=== PATIENT | female | born 1985 | race Caucasian/White ===

== ENCOUNTER 2017-04-19 17:19 | Emergency (ER) | payer OTHER ==
[2017-04-19 17:30] VITALS: BP 118/81; RESP 16; TEMP 98.5
--- NOTE | 2017-04-19 17:49 | ED PDOC ---
Arrival/HPI - General Chief Complaint: Finger,Hand,&Wrist Time Seen by Provider: 04/19/17 17:20 Historian: Patient - History of Present Illness Narrative History of Present Illness (Text): 04/19/17 17:44 31 y/o female, no pmh, penicillin allergy, last tetanus over 10 years ago, c/o splinter in the left thumb nail x 2 hours. Pt. stated that the wooden door smashed against the lt. thumb which she visualized the splint punctured through the nail border region of the lt. thumb, no numbness or tingling, no bleeding, no other medical or psychological complaints. Past Medical History - Provider Review Nursing Documentation Reviewed: Yes - Psychiatric Hx Psychophysiologic Disorder: No Hx Substance Use: No Family/Social History - Physician Review Nursing Documentation Reviewed: Yes Family/Social History: Unknown Family HX Smoking Status: Never Smoked Hx Alcohol Use: Yes Frequency of alcohol use: Socially Hx Substance Use: No Allergies/Home Meds Allergies/Adverse Reactions: Allergies Penicillins Allergy (Verified 04/19/17 17:26) SWELLING Review of Systems - Review of Systems Constitutional: absent: Fatigue, Fevers Eyes: absent: Vision Changes ENT: absent: Hearing Changes Respiratory: absent: SOB, Cough Cardiovascular: absent: Chest Pain Gastrointestinal: absent: Abdominal Pain, Diarrhea, Nausea, Vomiting Musculoskeletal: absent: Arthralgias, Back Pain, Neck Pain, Joint Swelling, Myalgias Skin: Other (puncture wound). absent: Rash, Pruritis, Skin Lesions, Laceration , Abscess, Ulcer, Cellulitis Neurological: absent: Headache, Dizziness, Focal Weakness Physical Exam Vital Signs Reviewed: Yes Vital Signs Temp Pulse Resp BP Pulse Ox 04/19/17 18:42 16 99 04/19/17 17:54 98.5 F 95 H 16 99 04/19/17 17:26 98.5 F 89 16 118/81 100 Temperature: Afebrile Blood Pressure: Normal Pulse: Regular Respiratory Rate: Normal Appearance: Positive for: Well-Appearing, Non-Toxic, Comfortable Pain Distress: Mild Mental Status: Positive for: Alert and Oriented X 3 - Systems Exam Head: Present: Atraumatic, Normocephalic Pupils: Present: PERRL Extroacular Muscles: Present: EOMI Conjunctiva: Present: Normal Mouth: Present: Moist Mucous Membranes Neck: Present: Normal Range of Motion Respiratory/Chest: Present: Clear to Auscultation, Good Air Exchange. No: Respiratory Distress, Accessory Muscle Use Cardiovascular: Present: Regular Rate and Rhythm, Normal S1, S2. No: Murmurs Abdomen: Present: Normal Bowel Sounds. No: Tenderness, Distention, Peritoneal Signs Back: Present: Normal Inspection Upper Extremity: Present: Normal Inspection, Other (Lt. hand 1st digit thumb region: there is injury to the lateral aspect of the nail region with no visible foreign bodies but the patient insist she sees it, no subungal hematoma , FROM without limitation, sensation intact, motor 5/5, +radial pulse, capillary refill< 2 seconds, neurovascular intact. ). No: Cyanosis, Edema Lower Extremity: Present: Normal Inspection. No: Edema Neurological: Present: GCS=15, CN II-XII Intact, Speech Normal Skin: Present: Warm, Dry, Normal Color. No: Rashes Psychiatric: Present: Alert, Oriented x 3, Normal Insight, Normal Concentration Medical Decision Making ED Course and Treatment: 04/19/17 17:45 -xray 04/19/17 18:06 -xray show no fracture/dislocation/foreign bodies -Tetanus/bactrim ds/motrin -sensation intact, motor 5/5, wound irrigate with 1000cc of normal saline, clean with betadine, 2cc of 1% lidocaine digital block on the lt. hand 1st digit thumb< #11 blade made 0.1cm incision on the puncture site with the wound explored and examined on the patient, there is no visible foreign bodies, bacitracin and gauze dressing, sensation intact, motor 5/5, pt. feels much better. The conclusion: there is no foreign bodies. -Discharge home with bactrim ds, motrin, bacitracin oinment, keep the dressing dry and clean for 24 hours, follow up with your own pmd and hand specialist within 2 days, return to the ER for any new or worsening signs or symptoms. - RAD Interpretation Radiology Orders: 04/19/17 17:49 HAND LEFT THUMB [RAD] Stat no acute findings. Applications Support Specialist: Radiologist - Medication Orders Current Medication Orders: Discontinued Medications Ibuprofen (Motrin Tab) 600 mg PO STAT STA Stop: 04/19/17 18:08 Last Admin: 04/19/17 18:41 Dose: 600 mg Lidocaine HCl (Lidocaine 1% (20ml)) 1 ml IJ STAT STA Stop: 06/10/17 17:51 Lidocaine HCl (Lidocaine 1% (20ml)) Confirm Administered Dose 20 ml .ROUTE .STK- MED ONE Stop: 04/19/17 17:52 Last Admin: 04/19/17 18:12 Dose: Tetanus/Reduced Diphtheria/Acell Pertussis (Boostrix Vaccine Inj) 0.5 ml IM .ONCE ONE Stop: 04/19/17 18:08 Last Admin: 04/19/17 18:39 Dose: 0.5 ml Trimethoprim/Sulfamethoxazole (Bactrim Ds Tab) 1 tab PO STAT STA PRN Reason: Protocol Stop: 04/19/17 18:08 Last Admin: 04/19/17 18:34 Dose: 1 tab - PA / COMMERCIAL FINANCE MANAGER / Resident Statement / has reviewed & agrees with the documentation as recorded. Disposition/Present on Arrival - Present on Arrival Any Indicators Present on Arrival: No History of DVT/PE: No History of Uncontrolled Diabetes: No Urinary Catheter: No History of Decub. Ulcer: No History Surgical Site Infection Following: None - Disposition Have Diagnosis and Disposition been Completed?: Yes Diagnosis: Puncture wound of finger Disposition: HOME/ ROUTINE Disposition Time: 17:53 Patient Plan: Discharge Condition: GOOD Additional Instructions: Discharge home with bactrim ds, motrin, bacitracin oinment, keep the dressing dry and clean for 24 hours, follow up with your own pmd and hand specialist within 2 days, return to the ER for any new or worsening signs or symptoms. Prescriptions: Bacitracin Ointment [Bacitracin] 1 appful TOP BID #15 g Ibuprofen [Motrin Tab] 600 mg PO QID #30 g Sulfamethoxazole/Trimethoprim [Bactrim DS 800 mg-160 mg] 1 tab PO BID #20 tab Referrals: EcoloCapjose Murry, [Primary Care Provider] - Follow up with primary Deni Forde MD [Staff Provider] - Follow up with primary Jesus Shepherd MD [Staff Provider] - Follow up with primary Forms: WORK NOTE
[2017-04-19] MEDS ORDERED: Lidocaine 1% Inj (20ml) IJ STA (17:50)
[2017-04-19] MEDS ORDERED: Lidocaine 1% Inj (20ml) ONE (17:51)
[2017-04-19 17:54] VITALS: PULSE 95; O2SAT 99
[2017-04-19] MEDS ORDERED: TDAP Vaccine 0.5 mL Syr IM ONE (18:07)
[2017-04-19] MEDS ORDERED: Tmp-Smz 800 mg-160 mg DS Tab PO STA (18:07)
--- NOTE | 2017-04-20 10:49 | RAD ---
PROCEDURE: Left Thumb radiographs. HISTORY: lt. thumb injury COMPARISON: None. TECHNIQUE: AP radiograph of the left hand, as well as spot oblique and lateral images of thumb were obtained. FINDINGS: LEFT THUMB: Normal left thumb, without fracture or focal lesion. Remainder of the left hand (as seen on the AP view) grossly unremarkable. JOINTS: Normal. SOFT TISSUES: Normal. No radiopaque/visualized foreign body. OTHER FINDINGS: None. IMPRESSION: No significant or acute findings to account for/ related to the clinical presentation.
== END 2017-04-19 18:42 | disposition home or self-care (01) ==
LOC: ED 17:19
DX: S61.032A Puncture wound without foreign body of left thumb without damage to nail, initial encounter (principal); W45.8XXA Other foreign body or object entering through skin, initial encounter; Z23 Encounter for immunization; Z88.0 Allergy status to penicillin

== ENCOUNTER 2018-03-10 08:41 | Observation (INO) | payer OTHER ==
[2018-03-10] MEDS ORDERED: Sodium Chloride 0.9% 500 ML IV STA (09:26)
--- NOTE | 2018-03-10 09:33 | ED PDOC ---
Arrival/HPI - General Chief Complaint: Dizziness/Lightheaded Time Seen by Provider: 03/10/18 08:44 Historian: Patient - History of Present Illness Narrative History of Present Illness (Text): 03/10/18 09:30 Patient is a 32 yo female denies past medical history, presents to the Emergency Department with history of sudden onset of dizziness this morning, worse with standing or movements. She denies headache. Denies fevers. Denies visual loss or blurred vision. Denies chest pain or palpitations or shortness of breath. States that when she is dizzy she feels nauseous. No abdominal pain. States that she did some cleaning in an apartment yesterday but did not have any dizziness yesterday during cleaning or when she came home. Noted that she had some mild throat irritation. Denies neck pain. Symptom Onset: Sudden Past Medical History - Infectious Disease Hx of Infectious Diseases: None - Psychiatric Hx Psychophysiologic Disorder: No Hx Substance Use: No Family/Social History Family/Social History: Unknown Family HX Smoking Status: Never Smoked Hx Alcohol Use: Yes Hx Substance Use: No Allergies/Home Meds Allergies/Adverse Reactions: Allergies Penicillins Allergy (Verified 04/19/17 17:26) SWELLING Home Medications: Home Meds Medication Instructions Recorded Confirmed No Known Home Med 03/10/18 03/10/18 Review of Systems - Review of Systems Constitutional: absent: Fevers ENT: Sore Throat. absent: Hearing Changes, TMJ Pain, Voice Changes, Rhinorrhea , Epistaxis, Sinus Congestion Respiratory: absent: SOB, Cough Cardiovascular: absent: Chest Pain, Palpitations, Edema, Calf Pain, NAVA Gastrointestinal: Nausea, Vomiting. absent: Abdominal Pain, Diarrhea, Hematochezia, Hematemesis Genitourinary Female: absent: Dysuria, Frequency Musculoskeletal: absent: Back Pain, Neck Pain Skin: absent: Rash Neurological: Dizziness, Disequilibrium. absent: Headache, Focal Weakness, Facial Droop, Seizure Endocrine: absent: Polyuria Hemo/Lymphatic: absent: Easy Bleeding Psychiatric: absent: Depression Physical Exam Vital Signs Reviewed: Yes Vital Signs Temp Pulse Resp BP Pulse Ox 03/10/18 15:58 88 18 111/68 96 03/10/18 14:00 84 18 112/69 98 03/10/18 12:00 80 18 110/71 98 03/10/18 10:00 88 18 112/66 98 03/10/18 08:56 97.2 F L 81 18 104/64 99 03/10/18 08:41 97.2 F L 96 H 18 104/64 96 Temperature: Afebrile Appearance: Positive for: Uncomfortable Pain Distress: Mild Mental Status: Positive for: Alert and Oriented X 3 - Systems Exam Head: Present: Atraumatic, Normocephalic Pupils: Present: PERRL Extroacular Muscles: Present: EOMI Mouth: Present: Moist Mucous Membranes Pharnyx: No: ERYTHEMA Neck: Present: Normal Range of Motion. No: Meningeal Signs Respiratory/Chest: Present: Clear to Auscultation. No: Respiratory Distress Cardiovascular: Present: Regular Rate and Rhythm Abdomen: Present: Normal Bowel Sounds. No: Tenderness, Distention, Peritoneal Signs Back: No: CVA Tenderness Upper Extremity: No: Cyanosis, Edema Lower Extremity: Present: NORMAL PULSES, Neurovascularly Intact. No: Edema, CALF TENDERNESS Neurological: Present: GCS=15, CN II-XII Intact, Normal Sensory Function, Normal Cerebellar Funct, Memory Normal, Normal 2Pt Descrimination, Other Medical Decision Making ED Course and Treatment: 03/10/18 09:43 Patient states that she awoke with symptoms at 610-630. She states that symptoms were more prevelant while she would move or turn. Denies trauma. Denies new medication. Denies headache or neck pain. On initial exam at 0925, patient is alert, no facial droop, no carotid bruits, no pronator drift. Visual acuity and visual simmons intact. Extraocular movements intact with no pathologic nystagmus. She has intact sensation and motor strength in upper and lower extremities. I was called to bedside by family at 0930, patient noted to have acute onset of "feeling tired" and she is noted to be drowsy but will answer questions, denies pain or discomfort. No respiratory distress noted. Head ct ordered and code stroke called due to acute change in exam. This was reviewed and discussed with patient and family. 03/10/2018 09:43 Code Stroke called. 03/10/2018 10:[address] IMPRESSION: No acute intracranial abnormality. If there is a persistent focal neurologic deficit and an ongoing clinical concern for acute infarction, an MRI of the brain without intravenous contrast would be a more sensitive modality for evaluation of hyperaucte/acute ischemic infarction. 1.9 x 0.8 x 1.0 cm CSF density lesion in the left anterior middle cranial fossa is statistically most compatible with an arachnoid cyst. Dictator Nena Duvall MD 03/10/2018 11:38 Chest X-ray IMPRESSION: No active pulmonary disease. Dictator: Nena Duvall MD 03/10/18 17:11 On re-evaluation upon return from ct head, patient remained awake, alert. No headache. CT head reading reviewed with patient. Antivert was given and on reassessment there is complete resolution of dizziness and she is awake, attentive, no nausea, no chest pain, no sob. She denies calf pain or chest discomfort. She is not hypoxia. She is not orthostatic. Patient states that earlier this morning prior to arrival she had episode where she felt weak in right arm "couldn't hold my glass strongly" that was brief. She has currently no motor deficits. Given ? hx of earlier weakness (now resolved) abnormal ct findings, will admit for serial neuro exams. Reviewed case with on-call neurologist Dr. Plaza, who has evaluated patient in the ED.. Hospitalist accepts admission to her service. - Lab Interpretations Lab Results: 03/10/18 09:45 03/10/18 09:45 Lab Results 03/10/18 14:22: Urine HCG, Qual Negative 03/10/18 10:30: Blood Type Confirm O POSITIVE 03/10/18 09:45: Beta HCG, Quant < 2.39 03/10/18 09:45: Blood Type O POSITIVE, Antibody Screen Negative, BBK History Checked No verified bt 03/10/18 09:45: Hemoglobin A1c 4.7 03/10/18 09:45: Sodium 139, Potassium 3.8, Chloride 102, Carbon Dioxide 25, Anion Gap 15, BUN 9, Creatinine 0.6 L, Est GFR ( Amer) > 60, Est GFR (Non -Af Amer) > 60, Random Glucose 93, Calcium 9.3, Total Bilirubin 0.7, AST 28, ALT 37, Alkaline Phosphatase 73, Total Protein 8.1, Albumin 4.8, Globulin 3.3, Albumin/Globulin Ratio 1.4, Triglycerides 55, Cholesterol 158, LDL Cholesterol Direct 67, HDL Cholesterol 76 H 03/10/18 09:45: WBC 7.4, RBC 4.23, Hgb 12.7, Hct 36.8, MCV 87.0, MCH 30.0, MCHC 34.5, RDW 13.1, Plt Count 177, MPV 10.9, Gran % 86.6 H, Lymph % (Auto) 9.7 L, [place] % (Auto) 3.1, Eos % (Auto) 0.3 L, Baso % (Auto) 0.3, Gran # 6.41, Lymph # ( Auto) 0.7 L, [place] # (Auto) 0.2, Eos # (Auto) 0.0, Baso # (Auto) 0.02 03/10/18 09:43: POC Glucose (mg/dL) 84 - RAD Interpretation Radiology Orders: 03/10/18 09:37 HEAD W/O (CODE STROKE) [CT] Stat 03/10/18 09:38 CHEST PORTABLE [RAD] Stat 03/10/18 15:32 BRAIN WITHOUT CONTRAST [MRI] Stat MRA HEAD WITHOUT CONTRAST [MRI] Stat - EKG Interpretation EKG Interpretation (Text): EKG at 0855 normal sinus rhythm with sinus arrhythmia Interpreted by ED Physician: Yes Type: 12 lead EKG - Medication Orders Current Medication Orders: Discontinued Medications Aspirin (Aspirin Chewable) 81 mg PO STAT STA Stop: 03/10/18 13:47 Last Admin: 03/10/18 14:05 Dose: 81 mg Sodium Chloride (Sodium Chloride 0.9%) 500 mls @ 1,000 mls/hr IV .Q30M STA Stop: 03/10/18 09:55 Last Admin: 03/10/18 10:09 Dose: 1,000 mls/hr eMAR Start Stop Document 03/10/18 10:09 RIO (Rec: 03/10/18 10:10 RIO [id number]) Intravenous Solution Start Date 03/10/18 Start Time 10:10 End Date 03/10/18 End time 10:40 Total Infusion Time 30 Meclizine HCl (Antivert) 25 mg PO ONCE ONE Stop: 03/10/18 09:27 Last Admin: 03/10/18 10:09 Dose: 25 mg NIHSS Scale ([place]) Time Performed: 09:30 - How Severe is the Stoke Baseline Level of Consciousness: 1=Drowsy LOC to Questions: 0=Both comments correct LOC to commands: 0=Obeys both correctly Best Gaze: 0=Normal Visual: 0=No visual loss Facial: 0=Normal Motor Arm - Left: 0=No drift Motor Arm - Right: 0=No drift Motor Leg - Left: 0=No drift Motor Leg - Right: 0=No drift Limb Ataxia: 0=Absent Sensory: 0=Normal Best Language: 0=No aphasia Dysarthia: 0=Normal articulation Extinction & Inattention (Neglect): 0=Normal, no object Score: 1 Risk Level: Minor Stroke Risk NIHSS Scale([place]) 2 Time Performed: 11:00 - How Severe is the Stoke Baseline Level of Consciousness: 0=Alert LOC to Questions: 0=Both comments correct LOC to commands: 0=Obeys both correctly Best Gaze: 0=Normal Visual: 0=No visual loss Facial: 0=Normal Motor Arm - Left: 0=No drift Motor Arm - Right: 0=No drift Motor Leg - Left: 0=No drift Motor Leg - Right: 0=No drift Limb Ataxia: 0=Absent Sensory: 0=Normal Best Language: 0=No aphasia Dysarthia: 0=Normal articulation Extinction & Inattention (Neglect): 0=Normal, no object Score: 0 Risk Level: No Stroke Risk rTPA Inclusion/Exclusion - Refusal of Treatment Patient Refused Treatment: Yes - Warning to TPA With Conditions Condition: Stroke Serevity Too Mild, Rapid Improvement Disposition/Present on Arrival - Present on Arrival Any Indicators Present on Arrival: No History of DVT/PE: No History of Uncontrolled Diabetes: No Urinary Catheter: No History of Decub. Ulcer: No History Surgical Site Infection Following: None - Disposition Have Diagnosis and Disposition been Completed?: Yes Diagnosis: Dizziness, Abnormal head CT Disposition: HOSPITALIZED Disposition Time: 14:45 Patient Plan: Admission, Telemetry Patient Problems: Current Active Problems Problem Status Onset Abnormal head CT Acute Dizziness Acute Condition: FAIR
[2018-03-10 10:13] LABS: BASO # 0.02 K/mm3 (0.0-2.0); BASO % 0.3 % (0.0-3.0); EOS % 0.3 % (1.5-5.0); GRAN # 6.41 (1.4-6.5); GRAN % 86.6 % (50.0-68.0); HEMOGLOBIN 12.7 g/dL (12.0-16.0); LYMPH # 0.7 (1.2-3.4); LYMPH % 9.7 % (22.0-35.0); MEAN CORPUSCULAR HGB CONC 34.5 g/dl (31.0-37.0); MEAN PLATELET VOLUME 10.9 fl (7.0-11.0); MONO # 0.2 (0.1-0.6); MONO % 3.1 % (1.0-6.0); RBC 4.23 10^6/uL (3.5-6.1); RED CELL DISTRIBUTION WIDTH 13.1 % (11.5-14.5); WHITE BLOOD COUNT 7.4 10^3/ul (4.5-11.0)
--- NOTE | 2018-03-10 10:13 | CT ---
PROCEDURE: CT HEAD WITHOUT CONTRAST. HISTORY: Dizziness and fatigue COMPARISON: None available. TECHNIQUE: Axial computed tomography images were obtained through the head/brain without intravenous contrast. Radiation dose: Total exam DLP = 814.41 MGy-cm. This CT exam was performed using one or more of the following dose reduction techniques: Automated exposure control, adjustment of the mA and/or kV according to patient size, and/or use of iterative reconstruction technique. FINDINGS: HEMORRHAGE: No intracranial hemorrhage. BRAIN: [place]-white matter differentiation is preserved. There is no mass effect or abnormal extra-axial fluid collection. There is no territorial infarction. There is a 1.9 x 0.8 x 1.0 cm CSF density lesion in the left anterior middle cranial fossa. VENTRICLES: The ventricles are normal in size, shape and configuration. CALVARIUM: The skull base and calvarium are normal. PARANASAL SINUSES: Predominantly clear. MASTOID AIR CELLS: Predominantly clear. OTHER FINDINGS: None. IMPRESSION: No acute intracranial abnormality. If there is a persistent focal neurologic deficit and an ongoing clinical concern for acute infarction, an MRI of the brain without intravenous contrast would be a more sensitive modality for evaluation of hyperacute/acute ischemic infarction. 1.9 x 0.8 x 1.0 cm CSF density lesion in the left anterior middle cranial fossa is statistically most compatible with an arachnoid cyst. Important findings were discussed with Dr. wang in the ER on 03/10/2018 at 10 a.m.
[2018-03-10 10:14] LABS: ALB/GLOB RATIO 1.4 (1.1-1.8); ALBUMIN 4.8 g/dL (3.0-4.8); ALT/SGPT 37 U/L (7-56); AST/SGOT 28 U/L (14-36); BLOOD UREA NITROGEN 9 mg/dL (7-21); CALCIUM 9.3 mg/dL (8.4-10.5); GFR AFRICAN-AMERICAN > 60; GFR NON-AFRICAN AMERICAN > 60; HDL CHOLESTEROL 76 mg/dL (29-60)
[2018-03-10 10:24] LABS: LDL CHOLESTEROL 67 mg/dL (0-129)
--- NOTE | 2018-03-10 11:40 | RAD ---
HISTORY: Code Stroke COMPARISON: No prior. FINDINGS: LUNGS: The lungs are well inflated and clear. PLEURA: No significant pleural effusion identified, no pneumothorax apparent. CARDIOVASCULAR: Normal. OSSEOUS STRUCTURES: No significant abnormalities. VISUALIZED UPPER ABDOMEN: Normal. OTHER FINDINGS: None. IMPRESSION: No active pulmonary disease.
--- NOTE | 2018-03-10 14:20 | CP.PCM.CON ---
History of Present Illness - History of Present Illness History of Present Illness: 32 yr old woman who presents with sudden onset dizziness and vomiting earlier this morning when she woke up. She denies any sick contacts, any recent change in meds. Dizziness is worse when she stands up, relieved by sitting down , accompanied by nausea. She came in as a code stroke but her symptoms resolved so she was not deemed a TPA candidate. Then, in the ER, she had a witnessed spell of fatigue followed by right arm discomfort and shaking. In addition, dr servin was able to elicit a history of right arm weakness sporadically with difficulty picking up cups and objects. No focal seizures, no headache, no visual field cut. PMH/PSH: Hyperthyroidism. 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 Has 2 children, no tobacco, no etoh. All: nkda. on exam: Normal neurological examination. Ct head: small arachnoid cyst in the left middle cranial fossa. no stroke, no hemorrhage. Past Patient History - Infectious Disease Hx of Infectious Diseases: None - Past Social History Smoking Status: Never Smoked - PSYCHIATRIC Hx Psychophysiologic Disorder: No Hx Substance Use: No - SURGICAL HISTORY Hx Surgeries: No - ANESTHESIA Hx Anesthesia: No Meds Allergies/Adverse Reactions: Allergies Allergy/AdvReac Type Severity Reaction Status Date / Time Penicillins Allergy SWELLING Verified 03/10/18 20:54 Results - Vital Signs Recent Vital Signs: Last Vital Signs Temp 97.2 F L 03/10/18 08:56 Pulse 81 03/10/18 08:56 Resp 18 03/10/18 08:56 BP 104/64 03/10/18 08:56 Pulse Ox 99 03/10/18 08:56 - Labs Result Diagrams: 03/10/18 09:45 03/10/18 09:45 Labs: Laboratory Results - last 24 hr 03/10/18 03/10/18 03/10/18 09:43 09:45 09:45 WBC 7.4 RBC 4.23 Hgb 12.7 Hct 36.8 MCV 87.0 MCH 30.0 MCHC 34.5 RDW 13.1 Plt Count 177 MPV 10.9 Gran % 86.6 H Lymph % (Auto) 9.7 L [place] % (Auto) 3.1 Eos % (Auto) 0.3 L Baso % (Auto) 0.3 Gran # 6.41 Lymph # (Auto) 0.7 L [place] # (Auto) 0.2 Eos # (Auto) 0.0 Baso # (Auto) 0.02 Sodium 139 Potassium 3.8 Chloride 102 Carbon Dioxide 25 Anion Gap 15 BUN 9 Creatinine 0.6 L Est GFR ( Amer) > 60 Est GFR (Non-Af Amer) > 60 POC Glucose (mg/dL) 84 Random Glucose 93 Calcium 9.3 Total Bilirubin 0.7 AST 28 ALT 37 Alkaline Phosphatase 73 Total Protein 8.1 Albumin 4.8 Globulin 3.3 Albumin/Globulin Ratio 1.4 Triglycerides 55 Cholesterol 158 LDL Cholesterol Direct 67 HDL Cholesterol 76 H Beta HCG, Quant Blood Type Blood Type Confirm Antibody Screen BBK History Checked 03/10/18 03/10/18 03/10/18 09:45 09:45 10:30 WBC RBC Hgb Hct MCV MCH MCHC RDW Plt Count MPV Gran % Lymph % (Auto) [place] % (Auto) Eos % (Auto) Baso % (Auto) Gran # Lymph # (Auto) [place] # (Auto) Eos # (Auto) Baso # (Auto) Sodium Potassium Chloride Carbon Dioxide Anion Gap BUN Creatinine Est GFR ( Amer) Est GFR (Non-Af Amer) POC Glucose (mg/dL) Random Glucose Calcium Total Bilirubin AST ALT Alkaline Phosphatase Total Protein Albumin Globulin Albumin/Globulin Ratio Triglycerides Cholesterol LDL Cholesterol Direct HDL Cholesterol Beta HCG, Quant < 2.39 Blood Type O POSITIVE Blood Type Confirm O POSITIVE Antibody Screen Negative BBK History Checked No verified bt - Imaging and Cardiology CT scan - head Status: Image reviewed by me, Report reviewed by me (ct head shows left middle cranial fossa with 2 cm by 1 cm arachnoid cyst. ) Assessment & Plan - Assessment and Plan (Free Text) Assessment: 32 yr old woman with new onset numbness and tingling and arachnoid cyst in middle cranial fossa. There is a slight likelihood this may be the etiology for her symptoms. We will order MRI brain with irving and eeg. Thank you Dr. Plaza
--- NOTE | 2018-03-10 16:58 | CP.PCM.HP ---
<Alexi Rhoades - Last Filed: 03/10/18 18:26> History of Present Illness - History of Present Illness History of Present Illness: CC: Dizziness HPI: 32 year old female with past medical history of hyperthyroidism in 2013 who [place] [facility] [place] with 1 day history of dizziness and vomiting. Patient reports starting early this morning she began experiencing dizziness that progressively worsened over short period of time. Patient indicates nausea and vomiting secondary to dizziness. Patient reports dizziness exacerbated by standing and with turning of her head. She stated the dizziness was constant and without remission with laying flat. She denies taking any medication in an effort to diminish symptoms. Associated symptoms with dizziness included poor upper extremity coordination R>L and tremulousness. Patient was evaluated in ED and found to have acute onset fatigue and right arm discomfort/difficulty with coordination. Code stroke was called and patient went for Head CT which showed negative for acute findings and CSF collection identified as an arachnoid cyst measuring 1.9cm x 0.8cm x 1.0 cm. Neurology was consulted for Code Stroke. Neurology evaluated the patient. Patient denies previous episodes similar to presenting symptoms. Denies loss of bowel, urinary incontinence, biting of tongue, post ictal state. Denies aura or migraine type picture. 12 point ROS benign otherwise mentioned in HPI. After interview patient went for MRI of head. PMH: Hyperthyroid - resolved PSH: Denies SOChx: Tobacco: Denies, ETOH: Social, ID: Denies - Lives in [place] with and two children, currently enrolled in graduate classes [facility]: Brother with unspecified brain tumor that was removed with two surgeries ALL: PCN - causes swelling Meds: Denies Present on Admission - Present on Admission Any Indicators Present on Admission: No Review of Systems - Review of Systems All systems: reviewed and no additional remarkable complaints except (as mentioned in HPI) Past Patient History - Infectious Disease Hx of Infectious Diseases: None - Past Social History Smoking Status: Never Smoked Alcohol: Social Drugs: Denies - PSYCHIATRIC Hx Psychophysiologic Disorder: No Hx Substance Use: No - SURGICAL HISTORY Hx Surgeries: No - ANESTHESIA Hx Anesthesia: No Meds Home Medications: Home Medication List Medication Instructions Recorded Confirmed Type Meclizine [Antivert] 12.5 mg PO BID PRN #14 tab 03/11/18 Rx Allergies/Adverse Reactions: Allergies Allergy/AdvReac Type Severity Reaction Status Date / Time Penicillins Allergy SWELLING Verified 03/10/18 20:54 Physical Exam - Constitutional Appears: No Acute Distress - Head Exam Head Exam: ATRAUMATIC, NORMAL INSPECTION, NORMOCEPHALIC - Eye Exam Eye Exam: EOMI, PERRL - ENT Exam ENT Exam: Mucous Membranes Moist - Neck Exam Neck exam: Positive for: Full Rom. Negative for: Lymphadenopathy - Respiratory Exam Respiratory Exam: Clear to Auscultation Bilateral, NORMAL BREATHING PATTERN. absent: Rales, Rhonchi, Wheezes, Stridor - Cardiovascular Exam Cardiovascular Exam: REGULAR RHYTHM, +S1, +S2 - GI/Abdominal Exam GI & Abdominal Exam: Normal Bowel Sounds, Soft. absent: Distended, Firm, Guarding - Extremities Exam Extremities exam: Positive for: normal inspection, pedal pulses present. Negative for: calf tenderness, pedal edema, tenderness - Neurological Exam Neurological exam: Alert, CN II-XII Intact, Oriented x3, Reflexes Normal Additional comments: upper and lower extremities with normal tendon reflexes, able to move all four extremities past midline - Psychiatric Exam Psychiatric exam: Normal Affect, Normal Mood - Skin Skin Exam: Dry, Warm Results - Vital Signs Recent Vital Signs: Last Vital Signs Temp 97.2 F L 03/10/18 08:56 Pulse 88 03/10/18 15:58 Resp 18 03/10/18 15:58 BP 111/68 03/10/18 15:58 Pulse Ox 96 03/10/18 15:58 - Labs Result Diagrams: 03/10/18 09:45 03/10/18 09:45 Labs: Laboratory Results - last 24 hr 03/10/18 03/10/18 03/10/18 09:43 09:45 09:45 WBC 7.4 RBC 4.23 Hgb 12.7 Hct 36.8 MCV 87.0 MCH 30.0 MCHC 34.5 RDW 13.1 Plt Count 177 MPV 10.9 Gran % 86.6 H Lymph % (Auto) 9.7 L [place] % (Auto) 3.1 Eos % (Auto) 0.3 L Baso % (Auto) 0.3 Gran # 6.41 Lymph # (Auto) 0.7 L [place] # (Auto) 0.2 Eos # (Auto) 0.0 Baso # (Auto) 0.02 Sodium 139 Potassium 3.8 Chloride 102 Carbon Dioxide 25 Anion Gap 15 BUN 9 Creatinine 0.6 L Est GFR ( Amer) > 60 Est GFR (Non-Af Amer) > 60 POC Glucose (mg/dL) 84 Random Glucose 93 Hemoglobin A1c Calcium 9.3 Total Bilirubin 0.7 AST 28 ALT 37 Alkaline Phosphatase 73 Total Protein 8.1 Albumin 4.8 Globulin 3.3 Albumin/Globulin Ratio 1.4 Triglycerides 55 Cholesterol 158 LDL Cholesterol Direct 67 HDL Cholesterol 76 H Beta HCG, Quant Urine HCG, Qual Blood Type Blood Type Confirm Antibody Screen BBK History Checked 03/10/18 03/10/18 03/10/18 09:45 09:45 09:45 WBC RBC Hgb Hct MCV MCH MCHC RDW Plt Count MPV Gran % Lymph % (Auto) [place] % (Auto) Eos % (Auto) Baso % (Auto) Gran # Lymph # (Auto) [place] # (Auto) Eos # (Auto) Baso # (Auto) Sodium Potassium Chloride Carbon Dioxide Anion Gap BUN Creatinine Est GFR ( Amer) Est GFR (Non-Af Amer) POC Glucose (mg/dL) Random Glucose Hemoglobin A1c 4.7 Calcium Total Bilirubin AST ALT Alkaline Phosphatase Total Protein Albumin Globulin Albumin/Globulin Ratio Triglycerides Cholesterol LDL Cholesterol Direct HDL Cholesterol Beta HCG, Quant < 2.39 Urine HCG, Qual Blood Type O POSITIVE Blood Type Confirm Antibody Screen Negative BBK History Checked No verified bt 03/10/18 03/10/18 10:30 14:22 WBC RBC Hgb Hct MCV MCH MCHC RDW Plt Count MPV Gran % Lymph % (Auto) [place] % (Auto) Eos % (Auto) Baso % (Auto) Gran # Lymph # (Auto) [place] # (Auto) Eos # (Auto) Baso # (Auto) Sodium Potassium Chloride Carbon Dioxide Anion Gap BUN Creatinine Est GFR ( Amer) Est GFR (Non-Af Amer) POC Glucose (mg/dL) Random Glucose Hemoglobin A1c Calcium Total Bilirubin AST ALT Alkaline Phosphatase Total Protein Albumin Globulin Albumin/Globulin Ratio Triglycerides Cholesterol LDL Cholesterol Direct HDL Cholesterol Beta HCG, Quant Urine HCG, Qual Negative Blood Type Blood Type Confirm O POSITIVE Antibody Screen BBK History Checked Assessment & Plan - Assessment and Plan (Free Text) Assessment: 32 year old female with past medical history that includes hyperthyroidism previously treated and resolved who presented [place] [facility] complaining of dizziness and nausea with vomiting. Code stroke in ED called for new onset right upper extremity weakness and - . Head CT done shows no acute intracranial abnormalities and arachnoid cyst. Neurology consulted. Patient to be admitted for further work up of dizziness etiology. Plan: Dizziness with associated nausea and vomiting Details: - Etiology: Vertigo vs. vs. TIA vs. seizure vs. CVA - Head CT(03/10/18): - Neurology consulted - Electrolytes wnl Plan: - f/u neurology recs - MRI brain f/u - Check TSH - Neuro checks Q6H - Aspiration, Fall, Seizure precaution DVT PPx: SCDs GI ppx: Pepcid Case and plan discussed with attending - Date & Time Date: 03/10/18 Time: 17:02 <Elder Morales - Last Filed: 03/11/18 17:36> Results - Vital Signs Recent Vital Signs: Last Vital Signs Temp 98.1 F 03/11/18 12:00 Pulse 73 03/11/18 12:00 Resp 16 03/11/18 12:00 BP 95/52 L 03/11/18 12:00 Pulse Ox 99 03/11/18 06:00 - Labs Result Diagrams: 03/11/18 06:15 03/11/18 06:15 Labs: Laboratory Results - last 24 hr 03/10/18 03/11/18 03/11/18 21:05 06:15 06:15 WBC 6.6 RBC 3.91 Hgb 11.6 L Hct 34.2 L MCV 87.5 MCH 29.7 MCHC 33.9 RDW 13.4 Plt Count 183 MPV 11.2 H Gran % 63.1 Lymph % (Auto) 27.3 [place] % (Auto) 7.7 H Eos % (Auto) 1.4 L Baso % (Auto) 0.5 Gran # 4.16 Lymph # (Auto) 1.8 [place] # (Auto) 0.5 Eos # (Auto) 0.1 Baso # (Auto) 0.03 Sodium 141 Potassium 3.7 Chloride 109 H Carbon Dioxide 23 Anion Gap 13 BUN 12 Creatinine 0.7 Est GFR ( Amer) > 60 Est GFR (Non-Af Amer) > 60 POC Glucose (mg/dL) Random Glucose 89 Calcium 8.7 Total Bilirubin 0.4 AST 19 ALT 28 Alkaline Phosphatase 59 Total Protein 6.5 Albumin 3.7 Globulin 2.8 Albumin/Globulin Ratio 1.4 Urine Opiates Screen Negative Urine Methadone Screen Negative Ur Barbiturates Screen Negative Ur Phencyclidine Scrn Negative Ur Amphetamines Screen Negative U Benzodiazepines Scrn Negative U Oth Cocaine Metabols Negative U Cannabinoids Screen Negative 03/11/18 03/11/18 03/11/18 07:29 11:15 11:18 WBC RBC Hgb Hct MCV MCH MCHC RDW Plt Count MPV Gran % Lymph % (Auto) [place] % (Auto) Eos % (Auto) Baso % (Auto) Gran # Lymph # (Auto) [place] # (Auto) Eos # (Auto) Baso # (Auto) Sodium Potassium Chloride Carbon Dioxide Anion Gap BUN Creatinine Est GFR ( Amer) Est GFR (Non-Af Amer) POC Glucose (mg/dL) 84 206 H 121 H Random Glucose Calcium Total Bilirubin AST ALT Alkaline Phosphatase Total Protein Albumin Globulin Albumin/Globulin Ratio Urine Opiates Screen Urine Methadone Screen Ur Barbiturates Screen Ur Phencyclidine Scrn Ur Amphetamines Screen U Benzodiazepines Scrn U Oth Cocaine Metabols U Cannabinoids Screen Attending/Attestation - Attestation I have personally seen and examined this patient.: Yes I have fully participated in the care of the patient.: Yes I have reviewed all pertinent clinical information: Yes Notes (Text): 03/11/18 17:33 Attending note; Patient seen and examined with resident in ER. Patient is a 32 year old female with past medical history of hyperthyroidism in 2013 who presents [place] [facility] [place] 1 day history of dizziness and vomiting. Patient reports starting early this morning she began experiencing dizziness that progressively worsened over short period of time. Patient also had some shakiness of the right dominant the ER. Code stroke called. CT head is negative for acute infarct. Showed subarachnoid cyst. CT is negative. Neurology evaluation appreciated. Started on meclizine. MRI ordered . PT evaluation requested . Possible discharge home tomorrow .
[2018-03-10 17:52] LABS: PH,URINE 6.5 (4.7-8.0); URINE BILIRUBIN NEGATIVE (NEGATIVE); URINE BLOOD NEGATIVE (NEGATIVE); URINE GLUCOSE (UA) NEGATIVE (NEGATIVE); URINE LEUKOCYTE ESTERASE NEGATIVE Leu/uL (NEGATIVE); URINE PROTEIN NEGATIVE mg/dL (<30 mg/dL); URINE UROBILINOGEN 0.2 E.U./dL (<1 E.U./dL)
[2018-03-10 17:54] LABS: URINE APPEARANCE CLEAR (CLEAR); URINE COLOR YELLOW (YELLOW)
--- NOTE | 2018-03-10 18:40 | CARD ---
APPROVED REPORT EKG Measurement Heart [id number] <Conclusion> Normal sinus rhythm with sinus arrhythmia Normal ECG
--- NOTE | 2018-03-10 20:18 | MRI ---
EXAM: MR Head Without Intravenous Contrast EXAM DATE/TIME: 03/10/2018 3:32 PM CLINICAL HISTORY: The patient age is 32 years old and is female; Signs and symptoms; Dizziness; Additional info: Dizziness, ? subarachnoid cyst Facility exam id and description: Mri br s brain without contrast TECHNIQUE: Magnetic resonance images of the head/brain without intravenous contrast in multiple planes. COMPARISON: CT - HEAD W/O (CODE STROKE) 2018-03-10 09:57 FINDINGS: Brain: There is no restricted diffusion within the brain to suggest acute ischemic change. There is no significant white matter disease. No cerebral edema. There is a tiny focus of magnetic susceptibility within the inferior left cerebellar lobe, which is likely incidental. There is asymmetric increase in T2 hyperintense CSF fluid signal intensity within the anterior aspect of the left middle cranial fossa measuring approximately 1.8 x 0.6 x 1.1 cm. This is consistent with an arachnoid cyst. Ventricles: No ventriculomegaly. Bones/joints: No acute abnormality. Sinuses: Unremarkable as visualized. No acute sinusitis. Mastoid air cells: No mastoid effusion. Orbits: No acute abnormality, as visualized. IMPRESSION: 1. There is no restricted diffusion within the brain to suggest acute ischemic change. 2. There is asymmetric increase in extra-axial fluid within the anterior aspect of the left middle cranial fossa measuring approximately 1.8 x 0.6 x 1.1 cm. This is consistent with an arachnoid cyst.
--- NOTE | 2018-03-10 20:25 | MRI ---
EXAM: MR Angiography Head Without Intravenous Contrast EXAM DATE/TIME: 03/10/2018 3:32 PM CLINICAL HISTORY: The patient age is 32 years old and is female; Signs and symptoms; Dizziness and giddiness Facility exam id and description: Mri mra heads mra head without contrast TECHNIQUE: Magnetic resonance angiography images of the head without intravenous contrast. COMPARISON: CT - HEAD W/O (CODE STROKE) 2018-03-10 09:57 FINDINGS: Right internal carotid artery: The proximal right cavernous internal carotid artery appears mildly stenosed on the three-dimensional reconstructions, without hemodynamically significant stenosis when correlated with the source images. This can be contribute artifact. No aneurysm. Right anterior cerebral artery: No occlusion or significant stenosis. No aneurysm. Right middle cerebral artery: No occlusion or significant stenosis. No aneurysm. Right posterior cerebral artery: No occlusion or significant stenosis. No aneurysm. Right vertebral artery: No occlusion or significant stenosis. Left internal carotid artery: No acute findings. Intracranial segment is patent with no significant stenosis. No aneurysm. Left anterior cerebral artery: No occlusion or significant stenosis. No aneurysm. Left middle cerebral artery: No occlusion or significant stenosis. No aneurysm. Left posterior cerebral artery: No occlusion or significant stenosis. No aneurysm. Left vertebral artery: No occlusion or significant stenosis. Basilar artery: No occlusion or significant stenosis. No aneurysm. IMPRESSION: 1. No definitive hemodynamically significant stenosis or occlusion on this MRA head. 2. Incidental/non-acute findings are described above.
--- NOTE | 2018-03-10 21:46 | CP.PCM.PN ---
Subjective - Date & Time of Evaluation Date of Evaluation: 03/10/18 Time of Evaluation: 21:10 - Subjective Subjective: Note: Dr Conley called from [facility] .He stated pt 's MRI of the brain shows no acute findings.There is a small arachnoid cyst in the L cranial fossa. Objective - Vital Signs/Intake and Output Vital Signs (last 24 hours): Temp Pulse Resp BP Pulse Ox 98.1 F 78 18 118/71 99 03/10/18 18:10 03/10/18 18:10 03/10/18 18:10 03/10/18 18:10 03/10/18 18:10 - Medications Medications: Current Medications Famotidine (Pepcid) 20 mg PO BID CARLOS Last Admin: 03/10/18 18:36 Dose: 20 mg Ondansetron HCl (Zofran Inj) 4 mg IVP Q4H PRN PRN Reason: Nausea/Vomiting Ondansetron HCl (Zofran Inj) 4 mg IVP Q4H PRN PRN Reason: Nausea/Vomiting
[2018-03-10 22:30] LABS: BARBITURATES, UR NEGATIVE (NEGATIVE); BENZODIAZEPINES, UR NEGATIVE (NEGATIVE); OPIATES, UR NEGATIVE (NEGATIVE); PHENCYCLIDINE, UR NEGATIVE (NEGATIVE)
[2018-03-11] MEDS ORDERED: Pneumococcal 23-Valent Vaccine IM ONE (00:20)
[2018-03-11 06:23] VITALS: O2SAT 99
[2018-03-11 06:39] LABS: BASO # 0.03 K/mm3 (0.0-2.0); BASO % 0.5 % (0.0-3.0); EOS # 0.1 (0.0-0.7); EOS % 1.4 % (1.5-5.0); GRAN # 4.16 (1.4-6.5); GRAN % 63.1 % (50.0-68.0); HEMOGLOBIN 11.6 g/dL (12.0-16.0); LYMPH # 1.8 (1.2-3.4); LYMPH % 27.3 % (22.0-35.0); MEAN CELL VOLUME 87.5 fl (80.0-105.0); MEAN CORPUSCULAR HEMOGLOBIN 29.7 pg (25.0-35.0); MEAN CORPUSCULAR HGB CONC 33.9 g/dl (31.0-37.0); MEAN PLATELET VOLUME 11.2 fl (7.0-11.0); MONO # 0.5 (0.1-0.6); MONO % 7.7 % (1.0-6.0); RBC 3.91 10^6/uL (3.5-6.1); RED CELL DISTRIBUTION WIDTH 13.4 % (11.5-14.5); WHITE BLOOD COUNT 6.6 10^3/ul (4.5-11.0)
[2018-03-11 07:07] LABS: ALB/GLOB RATIO 1.4 (1.1-1.8); ALBUMIN 3.7 g/dL (3.0-4.8); ALT/SGPT 28 U/L (7-56); AST/SGOT 19 U/L (14-36); BLOOD UREA NITROGEN 12 mg/dL (7-21); CALCIUM 8.7 mg/dL (8.4-10.5); GFR AFRICAN-AMERICAN > 60; GFR NON-AFRICAN AMERICAN > 60
--- NOTE | 2018-03-11 11:12 | CP.PCM.DIS ---
<Alexandru Denise - Last Filed: 03/11/18 12:35> Provider - Provider Date of Admission: 03/10/18 15:53 Attending physician: Elder Morales MD Time Spent in preparation of Discharge (in minutes): 45 Diagnosis - Discharge Diagnosis (1) Abnormal head CT Status: Acute Priority: Medium (2) Hyperthyroidism Status: Chronic Priority: Medium (3) Nausea & vomiting Status: Resolved (4) Dizziness Status: Resolved Hospital Course - Lab Results Lab Results: Most Recent Lab Values WBC 6.6 10^3/ul (4.5-11.0) 03/11/18 06:15 RBC 3.91 10^6/uL (3.5-6.1) 03/11/18 06:15 Hgb 11.6 g/dL (12.0-16.0) L 03/11/18 06:15 Hct 34.2 % (36.0-48.0) L 03/11/18 06:15 MCV 87.5 fl (80.0-105.0) 03/11/18 06:15 MCH 29.7 pg (25.0-35.0) 03/11/18 06:15 MCHC 33.9 g/dl (31.0-37.0) 03/11/18 06:15 RDW 13.4 % (11.5-14.5) 03/11/18 06:15 Plt Count 183 10^3/uL (120.0-450.0) 03/11/18 06:15 MPV 11.2 fl (7.0-11.0) H 03/11/18 06:15 Gran % 63.1 % (50.0-68.0) 03/11/18 06:15 Lymph % (Auto) 27.3 % (22.0-35.0) 03/11/18 06:15 Guadalupe % (Auto) 7.7 % (1.0-6.0) H 03/11/18 06:15 Eos % (Auto) 1.4 % (1.5-5.0) L 03/11/18 06:15 Baso % (Auto) 0.5 % (0.0-3.0) 03/11/18 06:15 Gran # 4.16 (1.4-6.5) 03/11/18 06:15 Lymph # (Auto) 1.8 (1.2-3.4) 03/11/18 06:15 Guadalupe # (Auto) 0.5 (0.1-0.6) 03/11/18 06:15 Eos # (Auto) 0.1 (0.0-0.7) 03/11/18 06:15 Baso # (Auto) 0.03 K/mm3 (0.0-2.0) 03/11/18 06:15 Sodium 141 mmol/L (132-148) 03/11/18 06:15 Potassium 3.7 mmol/L (3.6-5.0) 03/11/18 06:15 Chloride 109 mmol/L (98-107) H 03/11/18 06:15 Carbon Dioxide 23 mmol/L (21-33) 03/11/18 06:15 Anion Gap 13 (10-20) 03/11/18 06:15 BUN 12 mg/dL (7-21) 03/11/18 06:15 Creatinine 0.7 mg/dl (0.7-1.2) 03/11/18 06:15 Est GFR ( Amer) > 60 03/11/18 06:15 Est GFR (Non-Af Amer) > 60 03/11/18 06:15 POC Glucose (mg/dL) 84 mg/dL (65-110) 03/11/18 07:29 Random Glucose 89 mg/dL (70-110) 03/11/18 06:15 Hemoglobin A1c 4.7 % (4.2-6.5) 03/10/18 09:45 Calcium 8.7 mg/dL (8.4-10.5) 03/11/18 06:15 Total Bilirubin 0.4 mg/dL (0.2-1.3) 03/11/18 06:15 AST 19 U/L (14-36) 03/11/18 06:15 ALT 28 U/L (7-56) 03/11/18 06:15 Alkaline Phosphatase 59 U/L (38-126) 03/11/18 06:15 Total Protein 6.5 g/dL (5.8-8.3) 03/11/18 06:15 Albumin 3.7 g/dL (3.0-4.8) 03/11/18 06:15 Globulin 2.8 gm/dL 03/11/18 06:15 Albumin/Globulin Ratio 1.4 (1.1-1.8) 03/11/18 06:15 Triglycerides 55 mg/dL (35-160) 03/10/18 09:45 Cholesterol 158 mg/dL (130-200) 03/10/18 09:45 LDL Cholesterol Direct 67 mg/dL (0-129) 03/10/18 09:45 HDL Cholesterol 76 mg/dL (29-60) H 03/10/18 09:45 TSH 3rd Generation 3.18 mIU/mL (0.46-4.68) 03/10/18 09:45 Beta HCG, Quant < 2.39 mIU/mL (0-6.15) 03/10/18 09:45 Urine Color Yellow (YELLOW) 03/10/18 14:22 Urine Appearance Clear (CLEAR) 03/10/18 14:22 Urine pH 6.5 (4.7-8.0) 03/10/18 14:22 Ur Specific Roulette 1.010 (1.005-1.035) 03/10/18 14:22 Urine Protein Negative mg/dL (<30 mg/dL) 03/10/18 14:22 Urine Glucose (UA) Negative mg/dL (NEGATIVE) 03/10/18 14:22 Urine Ketones 15 mg/dL (NEGATIVE) H 03/10/18 14:22 Urine Blood Negative (NEGATIVE) 03/10/18 14:22 Urine Nitrate Negative (NEGATIVE) 03/10/18 14:22 Urine Bilirubin Negative (NEGATIVE) 03/10/18 14:22 Urine Urobilinogen 0.2 E.U./dL (<1 E.U./dL) 03/10/18 14:22 Ur Leukocyte Esterase Negative Cathy/uL (NEGATIVE) 03/10/18 14:22 Urine HCG, Qual Negative (NEGATIVE) 03/10/18 14:22 Urine Opiates Screen Negative (NEGATIVE) 03/10/18 21:05 Urine Methadone Screen Negative (NEGATIVE) 03/10/18 21:05 Ur Barbiturates Screen Negative (NEGATIVE) 03/10/18 21:05 Ur Phencyclidine Scrn Negative (NEGATIVE) 03/10/18 21:05 Ur Amphetamines Screen Negative (NEGATIVE) 03/10/18 21:05 U Benzodiazepines Scrn Negative (NEGATIVE) 03/10/18 21:05 U Oth Cocaine Metabols Negative (NEGATIVE) 03/10/18 21:05 U Cannabinoids Screen Negative (NEGATIVE) 03/10/18 21:05 Blood Type O POSITIVE 03/10/18 09:45 Blood Type Confirm O POSITIVE 03/10/18 10:30 Antibody Screen Negative 03/10/18 09:45 BBK History Checked No verified bt 03/10/18 09:45 - Hospital Course Hospital Course: Patient is a 32 year old female with past medical history of hyperthyroidism who was admitted for evaluation and treatment of dizziness and nausea/vomiting. With the use of physical examinations, lab work, and imaging the patient was diagnosed with and treated for a subarachnoid cyst along with the patients chronic medical conditions. During their hospital stay the patient was seen by Dr. Plaza whose recommendations were both appreciated and utilized in the care for this patient. Dr. Plaza recommended no acute intervention is required and instructed an outpatient follow up visit be completed. During their hospital stay the patient underwent a CT of head, MRI of head, and MRA of head without contrast which were reviewed, appreciated, and utilized in the management of the patients clinical course. The CT of head shows a 1.9 x 0.8 x 1.0 cm CSF density lesion in the left anterior middle cranial fossa. The MRI of the brain showed no restricted diffusion within the brain to suggest acute ischemic change , asymmetric increase in extra-axial fluid within the anterior aspect of the left middle cranial fossa measuring approximately 1.8 x 0.6 x 1.1 cm consistent with an arachnoid cyst. The MRA head without contrast showed no definitive hemodynamically significant stenosis or occlusion. Patient was treated with intravenous fluids, famotidine, meclizine, zofran amongst other empiric/ therapeutic medications. At this time the patient is medically stable for discharge. Patient understands and appreciates discharge plan. Patient instructed to follow up with primary care physicians and referrals within three to five days from discharge. Furthermore, the patient is instructed to take medications as prescribed and to return to emergency room for evaluation of intractable headache, fever, chills, dizziness, chest pain, shortness of breath , abdominal pain, nausea, vomiting, diarrhea, constipation, and urinary symptoms. This is a brief summary of the patients hospital course. Please see patient chart for full details. Discharge Exam - Head Exam Head Exam: ATRAUMATIC, NORMAL INSPECTION, NORMOCEPHALIC - Additional Findings Additional findings: - Constitutional Appears: No Acute Distress - Head Exam Head Exam: ATRAUMATIC, NORMAL INSPECTION, NORMOCEPHALIC - Eye Exam Eye Exam: EOMI, PERRL - ENT Exam ENT Exam: Mucous Membranes Moist - Neck Exam Neck exam: Positive for: Full Rom. Negative for: Lymphadenopathy - Respiratory Exam Respiratory Exam: Clear to Auscultation Bilateral, NORMAL BREATHING PATTERN. absent: Rales, Rhonchi, Wheezes, Stridor - Cardiovascular Exam Cardiovascular Exam: REGULAR RHYTHM, +S1, +S2 - GI/Abdominal Exam GI & Abdominal Exam: Normal Bowel Sounds, Soft. absent: Distended, Firm, Guarding - Extremities Exam Extremities exam: Positive for: normal inspection, pedal pulses present. Negative for: calf tenderness, pedal edema, tenderness - Neurological Exam Neurological exam: Patient is awake, alert, responds to verbal stimuli, answers questions appropriately, follows commands, and moves extremities past midline - Psychiatric Exam Psychiatric exam: Normal Affect, Normal Mood - Skin Skin Exam: Dry, Warm Discharge Plan - Discharge Medications Prescriptions: Meclizine [Antivert] 12.5 mg PO BID PRN #14 tab PRN Reason: Dizziness - Follow Up Plan Condition: FAIR Disposition: HOME/ ROUTINE Instructions: Vertigo (a Type of Dizziness), Vertigo (a Type of Dizziness) (DC) , Nausea and Vomiting, Adult (DC), Hyperthyroidism (Overactive Thyroid) (DC), Dizziness, Nonvertigo, (DC), Meclizine Additional Instructions: Patient Instructions: Take medications as prescribed. Follow up with Primary MD and referrals within three to five days from discharge. Return to the emergency room for evaluation of intractable headache, fever, chills, dizziness, chest pain, shortness of breath, abdominal pain, nausea, vomiting, diarrhea, constipation, and urinary symptoms. Referrals: Madina Plaza MD [Staff Provider] - <Elder Morales - Last Filed: 03/11/18 17:38> Provider - Provider Date of Admission: 03/10/18 15:53 Attending physician: Elder Morales MD Hospital Course - Lab Results Lab Results: Most Recent Lab Values WBC 6.6 10^3/ul (4.5-11.0) 03/11/18 06:15 RBC 3.91 10^6/uL (3.5-6.1) 03/11/18 06:15 Hgb 11.6 g/dL (12.0-16.0) L 03/11/18 06:15 Hct 34.2 % (36.0-48.0) L 03/11/18 06:15 MCV 87.5 fl (80.0-105.0) 03/11/18 06:15 MCH 29.7 pg (25.0-35.0) 03/11/18 06:15 MCHC 33.9 g/dl (31.0-37.0) 03/11/18 06:15 RDW 13.4 % (11.5-14.5) 03/11/18 06:15 Plt Count 183 10^3/uL (120.0-450.0) 03/11/18 06:15 MPV 11.2 fl (7.0-11.0) H 03/11/18 06:15 Gran % 63.1 % (50.0-68.0) 03/11/18 06:15 Lymph % (Auto) 27.3 % (22.0-35.0) 03/11/18 06:15 Guadalupe % (Auto) 7.7 % (1.0-6.0) H 03/11/18 06:15 Eos % (Auto) 1.4 % (1.5-5.0) L 03/11/18 06:15 Baso % (Auto) 0.5 % (0.0-3.0) 03/11/18 06:15 Gran # 4.16 (1.4-6.5) 03/11/18 06:15 Lymph # (Auto) 1.8 (1.2-3.4) 03/11/18 06:15 Guadalupe # (Auto) 0.5 (0.1-0.6) 03/11/18 06:15 Eos # (Auto) 0.1 (0.0-0.7) 03/11/18 06:15 Baso # (Auto) 0.03 K/mm3 (0.0-2.0) 03/11/18 06:15 Sodium 141 mmol/L (132-148) 03/11/18 06:15 Potassium 3.7 mmol/L (3.6-5.0) 03/11/18 06:15 Chloride 109 mmol/L (98-107) H 03/11/18 06:15 Carbon Dioxide 23 mmol/L (21-33) 03/11/18 06:15 Anion Gap 13 (10-20) 03/11/18 06:15 BUN 12 mg/dL (7-21) 03/11/18 06:15 Creatinine 0.7 mg/dl (0.7-1.2) 03/11/18 06:15 Est GFR ( Amer) > 60 03/11/18 06:15 Est GFR (Non-Af Amer) > 60 03/11/18 06:15 POC Glucose (mg/dL) 121 mg/dL (65-110) H 03/11/18 11:18 Random Glucose 89 mg/dL (70-110) 03/11/18 06:15 Hemoglobin A1c 4.7 % (4.2-6.5) 03/10/18 09:45 Calcium 8.7 mg/dL (8.4-10.5) 03/11/18 06:15 Total Bilirubin 0.4 mg/dL (0.2-1.3) 03/11/18 06:15 AST 19 U/L (14-36) 03/11/18 06:15 ALT 28 U/L (7-56) 03/11/18 06:15 Alkaline Phosphatase 59 U/L (38-126) 03/11/18 06:15 Total Protein 6.5 g/dL (5.8-8.3) 03/11/18 06:15 Albumin 3.7 g/dL (3.0-4.8) 03/11/18 06:15 Globulin 2.8 gm/dL 03/11/18 06:15 Albumin/Globulin Ratio 1.4 (1.1-1.8) 03/11/18 06:15 Triglycerides 55 mg/dL (35-160) 03/10/18 09:45 Cholesterol 158 mg/dL (130-200) 03/10/18 09:45 LDL Cholesterol Direct 67 mg/dL (0-129) 03/10/18 09:45 HDL Cholesterol 76 mg/dL (29-60) H 03/10/18 09:45 TSH 3rd Generation 3.18 mIU/mL (0.46-4.68) 03/10/18 09:45 Beta HCG, Quant < 2.39 mIU/mL (0-6.15) 03/10/18 09:45 Urine Color Yellow (YELLOW) 03/10/18 14:22 Urine Appearance Clear (CLEAR) 03/10/18 14:22 Urine pH 6.5 (4.7-8.0) 03/10/18 14:22 Ur Specific Roulette 1.010 (1.005-1.035) 03/10/18 14:22 Urine Protein Negative mg/dL (<30 mg/dL) 03/10/18 14:22 Urine Glucose (UA) Negative mg/dL (NEGATIVE) 03/10/18 14:22 Urine Ketones 15 mg/dL (NEGATIVE) H 03/10/18 14:22 Urine Blood Negative (NEGATIVE) 03/10/18 14:22 Urine Nitrate Negative (NEGATIVE) 03/10/18 14:22 Urine Bilirubin Negative (NEGATIVE) 03/10/18 14:22 Urine Urobilinogen 0.2 E.U./dL (<1 E.U./dL) 03/10/18 14:22 Ur Leukocyte Esterase Negative Cathy/uL (NEGATIVE) 03/10/18 14:22 Urine HCG, Qual Negative (NEGATIVE) 03/10/18 14:22 Urine Opiates Screen Negative (NEGATIVE) 03/10/18 21:05 Urine Methadone Screen Negative (NEGATIVE) 03/10/18 21:05 Ur Barbiturates Screen Negative (NEGATIVE) 03/10/18 21:05 Ur Phencyclidine Scrn Negative (NEGATIVE) 03/10/18 21:05 Ur Amphetamines Screen Negative (NEGATIVE) 03/10/18 21:05 U Benzodiazepines Scrn Negative (NEGATIVE) 03/10/18 21:05 U Oth Cocaine Metabols Negative (NEGATIVE) 03/10/18 21:05 U Cannabinoids Screen Negative (NEGATIVE) 03/10/18 21:05 Blood Type O POSITIVE 03/10/18 09:45 Blood Type Confirm O POSITIVE 03/10/18 10:30 Antibody Screen Negative 03/10/18 09:45 BBK History Checked No verified bt 03/10/18 09:45 Attending/Attestation - Attestation I have personally seen and examined this patient.: Yes I have fully participated in the care of the patient.: Yes I have reviewed all pertinent clinical information, including history, physical exam and plan: Yes Notes (Text): 03/11/18 17:36 Attending note; Patient seen and examined with resident. Patient is a 32 year old female with past medical history of hyperthyroidism in 2013 who presents to [facility] [place] for 1 day history of dizziness and vomiting. Patient reports starting early this morning she began experiencing dizziness that progressively worsened over short period of time. Patient also had some shakiness of the right dominant the ER. Code stroke called. CT head is negative for acute infarct. Showed subarachnoid cyst. CT is negative. Neurology evaluation appreciated. Started on meclizine. MRI showed subarachnoid cyst. Patient was cleared by neurology for discharge. PT evaluation appreciated. Discharge home today. Follow-up with Neurology on Friday, Follow-up with PMD of choice
[2018-03-11 12:07] VITALS: BP 95/52; PULSE 73; RESP 16; TEMP 98.1
== END 2018-03-11 14:26 | disposition home or self-care (01) ==
LOC: ED 08:41 → INTOOBSV 15:53 → ERH 15:53 → 2RSO 19:03
PROVIDERS: ADMIT Internal Medicine; ATTEND Internal Medicine
DX: R42 Dizziness and giddiness (principal); E05.90 Thyrotoxicosis, unspecified without thyrotoxic crisis or storm; R11.2 Nausea with vomiting, unspecified; R93.0 Abnormal findings on diagnostic imaging of skull and head, not elsewhere classified; G93.0 Cerebral cysts; Z79.899 Other long term (current) drug therapy
CPT/HCPCS: 36415; 70450; 70544; 70551; 71045; 80053; 80061; 80324; 80345; 80346; 80349; 80353; 80358; 80361; 81003; 82948; 83036; 83992; 84443; 84702; 84703; 85025; 86850; 86900; 93005; 95812; 97116; 97161; 99285; G0378; G8978; G8979; G8980; J7040

== ENCOUNTER 2018-12-13 09:33 | Emergency (ER) | payer OTHER ==
--- NOTE | 2018-12-13 10:03 | ED PDOC ---
Arrival/HPI - General Chief Complaint: Flu-like Symptoms Historian: Patient - History of Present Illness Narrative History of Present Illness (Text): 12/13/18 10:00 33 year old female, no significant pmh, allergic to penicillin, complaining of runny nose/fever/fatigue and bodyache x 1 day s/p sick contact with the kids with confirmed flu positive swabs. pt. stated that she has no coughing, no chest pain or shortness of breath, no night sweat, no urinary symptoms, no numbness or tingling, no neck stiffness, no recent traveling, no other medical or psychological complaints. Past Medical History - Provider Review Nursing Documentation Reviewed: Yes - Infectious Disease Hx of Infectious Diseases: None - Reproductive Currently : No - Cardiac Hx Cardiac Disorders: No - Pulmonary Hx Respiratory Disorders: No - Neurological Hx Neurological Disorder: No Hx Vertigo: Yes - HEENT Hx HEENT Disorder: No - Renal Hx Renal Disorder: No - Endocrine/Metabolic Hx Endocrine Disorders: No - Hematological/Oncological Hx Blood Disorders: No - Integumentary Hx Dermatological Disorder: Yes (rosacea) - Musculoskeletal/Rheumatological Hx Musculoskeletal Disorders: No Hx Falls: No - Gastrointestinal Hx Gastrointestinal Disorders: No - Genitourinary/Gynecological Hx Genitourinary Disorders: No - Psychiatric Hx Psychophysiologic Disorder: No Hx Substance Use: No - Anesthesia Hx Anesthesia: No Hx Anesthesia Reactions: No Hx Malignant Hyperthermia: No Family/Social History - Physician Review Nursing Documentation Reviewed: Yes Family/Social History: Unknown Family HX Smoking Status: Never Smoked Hx Alcohol Use: Yes (occasional) Hx Substance Use: No Allergies/Home Meds Allergies/Adverse Reactions: Allergies Penicillins Allergy (Verified 03/10/18 20:54) SWELLING Review of Systems - Review of Systems Constitutional: Fatigue, Fevers Eyes: absent: Vision Changes ENT: Rhinorrhea. absent: Hearing Changes Respiratory: absent: SOB, Cough Cardiovascular: absent: Chest Pain Gastrointestinal: absent: Abdominal Pain, Nausea, Vomiting Musculoskeletal: Myalgias. absent: Arthralgias, Back Pain Skin: absent: Rash, Pruritis Neurological: absent: Headache Hemo/Lymphatic: absent: Adenopathy Psychiatric: absent: Anxiety, Depression, Suicidal Ideation Physical Exam Vital Signs Reviewed: Yes Vital Signs Temp Pulse Resp BP Pulse Ox 12/13/18 09:34 98.2 F 105 H 18 107/69 99 Temperature: Afebrile Blood Pressure: Normal Pulse: Tachycardic Respiratory Rate: Normal Appearance: Positive for: Well-Appearing, Non-Toxic Pain Distress: Mild Mental Status: Positive for: Alert and Oriented X 3 - Systems Exam Head: Present: Atraumatic, Normocephalic Pupils: Present: PERRL Extroacular Muscles: Present: EOMI Conjunctiva: Present: Normal Ears: Present: NORMAL TM, Normal Canal. No: Erythema Mouth: Present: Moist Mucous Membranes Pharnyx: No: ERYTHEMA, EXUDATE, TONSILS ENLARGED Nose (External): Present: Atraumatic. No: Abrasion, Contusion, Laceration Nose (Internal): Present: Normal Inspection, No Active Bleeding, Rhinorrhea. No: Septal Hematoma, Epistaxis Neck: Present: Normal Range of Motion, Trachea Midline. No: Meningeal Signs, MIDLINE TENDERNESS, Paraspinal Tenderness, Lymphadenopathy Respiratory/Chest: Present: Clear to Auscultation, Good Air Exchange. No: Respiratory Distress, Accessory Muscle Use, Wheezes, Decreased Breath Sounds, Rales, Retracting, Rhonchi, Tachypneic, Tender to Palpation Cardiovascular: Present: Regular Rate and Rhythm, Normal S1, S2. No: Murmurs Abdomen: No: Tenderness, Distention, Peritoneal Signs, Rebound, Guarding Back: Present: Normal Inspection. No: CVA Tenderness, Midline Tenderness Upper Extremity: Present: Normal Inspection, Normal ROM, NORMAL PULSES, Neurov ascularly Intact, Capillary Refill < 2s. No: Cyanosis, Edema, Tenderness, Swelling, Deformity Lower Extremity: Present: Normal Inspection, NORMAL PULSES, Normal ROM, Neurovas cularly Intact, Capillary Refill < 2 s. No: Edema, Tenderness, Swelling, Deformity Neurological: Present: GCS=15, CN II-XII Intact, Speech Normal, Motor Func Grossly Intact, Gait Normal, Memory Normal Skin: Present: Warm, Dry, Normal Color. No: Rashes Lymphatic: No: Cervical Adenopathy Psychiatric: Present: Alert, Oriented x 3, Normal Insight, Normal Concentration Medical Decision Making ED Course and Treatment: 12/13/18 10:02 -flu swab/ua -tylenol -observe and reassess 12/13/18 12:04 -Urine hcg is negative -Rapid flu is positive, tamiflu ordered -IVF/toradol given. -Urinalysis show no bacterial UTI , incidentally noted to have yeast with difluc an ordered. -Pt. feels well, non-toxic, eating and drinking well, discussed about the result, will discharge home. -Discharge home with tamiflu, tylenol, bed rest, stay hydrated, follow up with your own pmd within 2 days, return to the ER for any new or worsening signs or symptoms. - PA / CHEMICALS FERMENTATION OPERATOR / Resident Statement MD/DO has reviewed & agrees with the documentation as recorded. Disposition/Present on Arrival - Present on Arrival Any Indicators Present on Arrival: No History of DVT/PE: No History of Uncontrolled Diabetes: No Urinary Catheter: No History of Decub. Ulcer: No History Surgical Site Infection Following: None - Disposition Have Diagnosis and Disposition been Completed?: Yes Diagnosis: Influenza, Yeast UTI Disposition: HOME/ ROUTINE Disposition Time: 11:07 Patient Plan: Discharge Patient Problems: Current Active Problems Problem Status Onset Influenza Acute Yeast UTI Acute Condition: IMPROVED Discharge Instructions (ExitCare): Flu, Adult (DC), Yeast Infection (DC) Additional Instructions: -Discharge home with tamiflu, tylenol, bed rest, stay hydrated, follow up with your own pmd within 2 days, return to the ER for any new or worsening signs or symptoms. Prescriptions: Acetaminophen [Tylenol] 2 cap PO QID PRN #30 capsule PRN Reason: Other Oseltamivir Phosphate [Tamiflu] 75 mg PO BID #10 capsule Referrals: [facility] [place] - Follow up with primary Forms: [facility] ([place]), WORK NOTE
[2018-12-13 10:27] LABS: URINE BILIRUBIN NEGATIVE (NEGATIVE); URINE BLOOD TRACE-INTACT (NEGATIVE); URINE GLUCOSE (UA) NEGATIVE (NEGATIVE); URINE LEUKOCYTE ESTERASE NEGATIVE Leu/uL (NEGATIVE); URINE PROTEIN NEGATIVE mg/dL (<30 mg/dL); URINE UROBILINOGEN 0.2 E.U./dL (<1 E.U./dL)
[2018-12-13 10:43] LABS: URINE APPEARANCE CLEAR (CLEAR); URINE COLOR YELLOW (YELLOW)
[2018-12-13 10:45] LABS: URINE BACTERIA MANY /hpf; URINE WBC 0 - 2 /hpf (0-6)
[2018-12-13] MEDS ORDERED: Sodium Chloride 0.9% 1,000 ML IV STA (11:14)
[2018-12-13 11:36] VITALS: RESP 16
[2018-12-13 13:20] VITALS: BP 100/66; PULSE 84; TEMP 98.6; O2SAT 98
== END 2018-12-13 13:17 | disposition home or self-care (01) ==
LOC: ED 09:33
DX: J11.1 Influenza due to unidentified influenza virus with other respiratory manifestations (principal); B37.49 Other urogenital candidiasis; Z88.0 Allergy status to penicillin
CPT/HCPCS: 81001; 81025; 87804; 96374; 99284; J1885; J7030